=== PATIENT | male | born 1980 | race African-American/Black ===

== ENCOUNTER 2020-11-12 16:28 | Emergency (ER) | payer OTHER ==
--- NOTE | 2020-11-12 17:01 | EDM.PDOC ---
<Hedy Guadalupe - Last Filed: 11/12/20 16:53> ED HPI GENERAL MEDICAL PROBLEM - General Chief Complaint: Respiratory Problem Stated Complaint: TROUBLE WITH BREATHING AND SWALLOWING Time Seen by Provider: 11/12/20 16:43 Source of Information: Reports: Patient History Limitations: Reports: No Limitations - History of Present Illness INITIAL COMMENTS - FREE TEXT/NARRATIVE: Efraín is a pleasant 40 year old male presenting to the ED today with throat tightness. He is from [place], but is visiting his brother currently. He states it has gotten so bad that it is hard for him to breathe. He was diagnosed with bronchitis roughly one month ago in [place] and he was given prednisone and an albuterol inhaler. He states this did not help the throat tightness and it has progressively gotten worse. He admits to smoking marijuana, but has stopped smoking cigarettes as it made it worse. He denies any allergies. He states he occasionally gets cold sweats that come and go and along with that some chest tightness. He does have history of hypertension and GERD. He describes the pain as "bulging and squeezing" and spasming when I brought it up. He also mentions he is more dyspneic with exertion, with chest and back pain. He denies fevers, nausea, or vomiting. Throat Pain Score (Numeric/FACES): 9 - Related Data Allergies Allergy/AdvReac Type Severity Reaction Status Date / Time No Known Allergies Allergy Verified 11/12/20 16:37 Home Meds: Home Meds Albuterol Sulfate [Albuterol Sulfate Hfa] 2 puff IH Q4HR PRN 11/12/20 [History] Past Medical History Cardiovascular History: Reports: Hypertension Social & Family History - Tobacco Use Tobacco Use Status *Q: Former Tobacco User Used Tobacco, but Quit: Yes Month/Year Tobacco Last Used: 10/07 - Caffeine Use Caffeine Use: Reports: Coffee - Recreational Drug Use Recreational Drug Use: Yes Recreational Drug Type: Reports: Marijuana/Hashish ED ROS GENERAL - Review of Systems Review Of Systems: Comprehensive ROS is negative, except as noted in HPI. Respiratory: Reports: Shortness of Breath, Cough Cardiovascular: Reports: Chest Pain, Blood Pressure Problem Musculoskeletal: Reports: Back Pain ED EXAM, GENERAL - Physical Exam Exam: See Below Exam Limited By: No Limitations General Appearance: Alert, WD/WN, No Apparent Distress Throat/Mouth: Normal Inspection, Normal Lips, Normal Teeth, Normal Gums, Normal Oropharynx, Normal Voice, No Airway Compromise Head: Atraumatic, Normocephalic Neck: Normal Inspection, Supple, Non-Tender, Full Range of Motion Respiratory/Chest: No Respiratory Distress, Lungs Clear, Normal Breath Sounds, No Accessory Muscle Use, Chest Non-Tender Cardiovascular: Normal Peripheral Pulses, Regular Rate, Rhythm, No Edema, No Gallop, No JVD, No Murmur, No Rub GI/Abdominal: Normal Bowel Sounds, Soft, Non-Tender Back Exam: Normal Inspection, Full Range of Motion, NT Extremities: Normal Inspection, Normal Range of Motion, Non-Tender, Normal Capil edna Refill, No Pedal Edema Neurological: Alert, Oriented, CN II-XII Intact, Normal Cognition Course - Re-Assessments/Exams Free Text/Narrative Re-Assessment/Exam: 11/12/20 17:04 Efraín is a 40 year old male presenting to the ED with throat tightness that has gotten progressively worse over the past month. It is now hard for him to breathe and has complaints of dyspnea. Because of his history of hypertension, mild chest pain and getting cold sweats, a cardiac work, including troponin, PT/INR, PTT, BNP, magnesium, EKG, chest xray, up will be done to rule out any cardiac involvement. Routine labs will be ordered. Departure - Departure Disposition: Home, Self-Care Clinical Impression: Reflux esophagitis Qualifiers: Esophagitis bleeding: without hemorrhage Qualified Code(s): K21.00 - Gastro- esophageal reflux disease with esophagitis, without bleeding - Discharge Information Instructions: Food Choices for Gastroesophageal Reflux Disease, Adult, Gastroesophageal Reflux Disease, Adult, [id number] Referrals: PCP,None [Primary Care Provider] - Forms: ED Department Discharge Additional Instructions: You were evaluated in the ER today for your ongoing throat/possible esophageal spasms. A cardiac work-up was obtained at today's visit, just to make sure there was no cardiac etiology that would be causing your mid central chest/throat discomfort. Everything was within normal limits. It is highly likely that you are suffering from a component of acid reflux or GERD (gastroesophageal reflux disease), treatment of this will be with [id number] PPI like omeprazole (Prilosec) You will need to take 1 tablet once daily, to help suppress the acid production in your stomach. This medication may take up to 72 hours to provide you full benefit, I recommend you take a medication like Pepcid (famotidine) while the omeprazole is being given time to work. You may also use Maalox to help provide you relief while the Prilosec is being given time to work. Highly and strongly recommend you get a primary care provider, if you do not already have one, for a possible GI referral, and or general surgeon referral for an upper GI scope, or EGD, for further evaluation of your suspected reflux disease. Please return to the ER at any time if symptoms change or worsen. Sepsis Event Note (ED) - Evaluation Sepsis Screening Result: No Definite Risk <Yecenia Jacobson V - Last Filed: 11/12/20 18:25> #1 Interpretation EKG Date: 11/12/20 Time: 17:26 Rhythm: NSR Rate (Beats/Min): 77 [place]: Normal P-Wave: Present QRS: Normal ST-T: Normal QT: Normal Comparison: NA - No Prior EKG EKG Interpretation Comments: No obvious ischemia or acute ST changes noted, reviewed by myself and Dr. Foreman. Course - Vital Signs Last Recorded V/S: Last Vital Signs Temp 97.6 F 11/12/20 16:33 Pulse 95 11/12/20 16:33 Resp 16 11/12/20 16:33 BP 155/107 H 11/12/20 16:33 Pulse Ox 97 11/12/20 16:33 - Orders/Labs/Meds Orders: Active Orders 24 hr Category Date Time Status EKG Documentation Completion [RC] STAT Care 11/12/20 16:58 Ordered Chest 2V [CR] Stat Exams 11/12/20 16:58 Ordered Labs: Laboratory Tests 11/12/20 11/12/20 11/12/20 Range/Units 17:17 17:17 17:17 WBC 6.24 (4.23-9.07) K/mm3 RBC 4.90 (4.63-6.08) M/mm3 Hgb 14.3 (13.7-17.5) gm/dl Hct 43.4 (40.1-51.0) % MCV 88.6 (79.0-92.2) fl MCH 29.2 (25.7-32.2) pg MCHC 32.9 (32.2-35.5) g/dl RDW Std Deviation 49.0 H (35.1-43.9) fL Plt Count 224 (163-337) K/mm3 MPV 9.3 L (9.4-12.3) fl Neut % (Auto) 49.7 (34.0-67.9) % Lymph % (Auto) 37.5 (21.8-53.1) % Blanco % (Auto) 9.8 (5.3-12.2) % Eos % (Auto) 2.7 (0.8-7.0) Baso % (Auto) 0.3 (0.1-1.2) % Neut # (Auto) 3.10 (1.78-5.38) K/mm3 Lymph # (Auto) 2.34 (1.32-3.57) K/mm3 [place] # (Auto) 0.61 (0.30-0.82) K/mm3 Eos # (Auto) 0.17 (0.04-0.54) K/mm3 Baso # (Auto) 0.02 (0.01-0.08) K/mm3 PT 11.2 (9.7-12.0) SECONDS INR 1.05 APTT 27.6 (21.7-31.4) SECONDS Sodium 142 (136-145) mEq/L Potassium 3.7 (3.5-5.1) mEq/L Chloride 105 (98-107) mEq/L Carbon Dioxide 29 (21-32) mEq/L Anion Gap 11.7 (5-15) BUN 13 (7-18) mg/dL Creatinine 1.6 H (0.7-1.3) mg/dL Est Cr Clr Drug Dosing 63.37 mL/min Estimated GFR (MDRD) 58 (>60) mL/min BUN/Creatinine Ratio 8.1 L (14-18) Glucose 119 H (74-106) mg/dL Calcium 8.9 (8.5-10.1) mg/dL Magnesium 1.9 (1.8-2.4) mg/dl Total Bilirubin 0.4 (0.2-1.0) mg/dL AST 30 (15-37) U/L ALT 82 H (16-63) U/L Alkaline Phosphatase 67 (46-116) U/L Troponin I < 0.017 (0.00-0.056) ng/mL NT-Pro-B Natriuret Pep (0-125) pg/mL Total Protein 7.4 (6.4-8.2) g/dl Albumin 3.6 (3.4-5.0) g/dl Globulin 3.8 gm/dL Albumin/Globulin Ratio 1.0 (1-2) 11/12/20 Range/Units 17:17 WBC (4.23-9.07) K/mm3 RBC (4.63-6.08) M/mm3 Hgb (13.7-17.5) gm/dl Hct (40.1-51.0) % MCV (79.0-92.2) fl MCH (25.7-32.2) pg MCHC (32.2-35.5) g/dl RDW Std Deviation (35.1-43.9) fL Plt Count (163-337) K/mm3 MPV (9.4-12.3) fl Neut % (Auto) (34.0-67.9) % Lymph % (Auto) (21.8-53.1) % Blanco % (Auto) (5.3-12.2) % Eos % (Auto) (0.8-7.0) Baso % (Auto) (0.1-1.2) % Neut # (Auto) (1.78-5.38) K/mm3 Lymph # (Auto) (1.32-3.57) K/mm3 [place] # (Auto) (0.30-0.82) K/mm3 Eos # (Auto) (0.04-0.54) K/mm3 Baso # (Auto) (0.01-0.08) K/mm3 PT (9.7-12.0) SECONDS INR APTT (21.7-31.4) SECONDS Sodium (136-145) mEq/L Potassium (3.5-5.1) mEq/L Chloride (98-107) mEq/L Carbon Dioxide (21-32) mEq/L Anion Gap (5-15) BUN (7-18) mg/dL Creatinine (0.7-1.3) mg/dL Est Cr Clr Drug Dosing mL/min Estimated GFR (MDRD) (>60) mL/min BUN/Creatinine Ratio (14-18) Glucose (74-106) mg/dL Calcium (8.5-10.1) mg/dL Magnesium (1.8-2.4) mg/dl Total Bilirubin (0.2-1.0) mg/dL AST (15-37) U/L ALT (16-63) U/L Alkaline Phosphatase (46-116) U/L Troponin I (0.00-0.056) ng/mL NT-Pro-B Natriuret Pep 39 (0-125) pg/mL Total Protein (6.4-8.2) g/dl Albumin (3.4-5.0) g/dl Globulin gm/dL Albumin/Globulin Ratio (1-2) Meds: Medications Discontinued Medications Generic Name Dose Route Start Last Admin Trade Name Freq PRN Reason Stop Dose Admin Al Hydroxide/Mg Hydroxide 30 0 ml 11/12/20 17:08 11/12/20 17:21 ml/ Lidocaine HCl 15 ml PO 11/12/20 17:09 45 ml ONETIME ONE Administration - Re-Assessments/Exams Free Text/Narrative Re-Assessment/Exam: 11/12/20 17:14 I have read and reviewed the student's HPI and examined the patient and agree with PAO Avila-student. It does sound as if there is a component of reflux that is causing some of his issues. Have ordered a GI cocktail as well to see if this helps relieve some of his symptoms. Will likely have the patient start on Prilosec [id number], he notes that he was told to take Mylanta or Tums for treatment and the use have not been of much benefit. 11/12/20 18:07 Patient's EKG was done and demonstrates normal sinus rhythm with no other abnormalities. The patient's labs are unremarkable. Again I do believe that there could be a component of reflux or GERD in nature. I did tell the patient that he would likely benefit from getting a primary care provider, and getting an upper GI scope for further evaluation, patient verbalized understanding. Departure - Departure Time of Disposition: 18:08 Condition: Good - Discharge Information *PRESCRIPTION DRUG MONITORING PROGRAM REVIEWED*: No *COPY OF PRESCRIPTION DRUG MONITORING REPORT IN PATIENT JAIME: No Sepsis Event Note (ED) - Focused Exam Vital Signs: Vital Signs Temp Pulse Resp BP Pulse Ox 11/12/20 16:33 97.6 F 95 16 155/107 H 97 - My Orders Last 24 Hours: My Active Orders 11/12/20 16:58 EKG Documentation Completion [RC] STAT Chest 2V [CR] Stat - Assessment/Plan Last 24 Hours: My Active Orders 11/12/20 16:58 EKG Documentation Completion [RC] STAT Chest 2V [CR] Stat
[2020-11-12] MEDS ORDERED: Alum Hydrox/Mag Hydrox/Simeth 30 ML, Lidocaine 2% 15 ML PO ONE ×2 (17:08)
--- NOTE | 2020-11-12 18:44 | CR ---
Chest: 2 views of the chest were obtained. Comparison: No prior chest imaging is available. Heart size and mediastinum are normal. Lungs are clear with no acute parenchymal change. Bony structures are unremarkable. Impression: 1. Nothing acute is seen on 2 view chest x-ray. Diagnostic code #1
== END 2020-11-12 18:44 | disposition home or self-care (01) ==
LOC: JD.ED 16:28
DX: K21.00 Gastro-esophageal reflux disease with esophagitis, without bleeding (principal); R06.02 Shortness of breath; M54.9 Dorsalgia, unspecified; I10 Essential (primary) hypertension; Z87.891 Personal history of nicotine dependence
CPT/HCPCS: 36415; 71046; 80053; 83735; 83880; 84484; 85025; 85610; 85730; 93005; 99285; A9270; 93010; 99283

== ENCOUNTER 2021-05-15 05:19 | Emergency (ER) | payer MEDICAID, OTHER ==
[2021-05-15] MEDS ORDERED: Alum Hydrox/Mag Hydrox/Simeth 30 ML, Lidocaine 2% 15 ML PO STA ×2 (06:35)
--- NOTE | 2021-05-15 06:41 | EDM.PDOC ---
<Bryon Braga - Last Filed: 05/15/21 07:14> ED HPI GENERAL MEDICAL PROBLEM - General Chief Complaint: Cardiovascular Problem Stated Complaint: CHEST PAIN/UPPER ABDOMINAL PAIN Time Seen by Provider: 05/15/21 06:21 Source of Information: Reports: Patient History Limitations: Reports: No Limitations - History of Present Illness INITIAL COMMENTS - FREE TEXT/NARRATIVE: Mr. Ham is a very pleasant 41-year-old gentleman who now presents the ED stating that he initially developed episodic pain in his lower extremities in January, which has since migrated up to his epigastrium. His epigastric pain is made worse after he eats, but he has not identified any other modifiers, such as movement. He has had occasional nausea, slight dyspnea, chills, a slight cough, and reports that both of his lower extremities twitch on occasion. He experienced momentary sharp central chest pain around 05:45 this morning, which is what prompted him to come to the ED today. He has not taken any [id number] or home remedies. Here in the ED, the patient's initial BP is found to be modestly elevated 158/85, otherwise, he is hemodynamically stable, afebrile, saturating 98% on room air. He appears to be comfortable, in no acute distress. Prior to January, the patient denies having a recent fever, chills, sore throat, ear pain, nasal or sinus congestion, cough, dyspnea, chest pain, palpitations, nausea, vomiting, constipation, diarrhea, abdominal pain, urinary symptoms, recent weight gain or weight loss, recent bloody bowel movements or black bowel movements, recent joint aches, headaches, or rashes. The patient lives in [place] and is visiting this area for 1 to 2 weeks. He has not received a COVID vaccination. Upper Abdomen Pain Score (Numeric/FACES): 8 - Related Data Allergies Allergy/AdvReac Type Severity Reaction Status Date / Time No Known Allergies Allergy Verified 05/15/21 05:27 Home Meds: Home Meds Omeprazole Magnesium [Prilosec Otc] 20 mg PO DAILY #42 tablet. 05/15/21 [Rx] hydroCHLOROthiazide [Hydrochlorothiazide] 12.5 mg PO 05/15/21 [History] Past Medical History Cardiovascular History: Reports: Hypertension Social & Family History - Tobacco Use Tobacco Use Status *Q: Former Tobacco User Years of Tobacco use: 27 Packs/Tins Daily: 1 Month/Year Tobacco Last Used: Quit Oct 2020 Tobacco Use Comment: Started smoking 1992 - Caffeine Use Caffeine Use: Reports: Coffee - Alcohol Use Alcohol Use History: Yes Alcohol Use Frequency: Socially - Recreational Drug Use Recreational Drug Use: Yes Drug Use in Last 12 Months: Yes Recreational Drug Type: Reports: Marijuana/Hashish (smokes daily) - Living Situation & Occupation Living situation: Reports: , with Spouse, with Family (5 kids) Occupation: Employed (Home improvement) ED ROS GENERAL - Review of Systems Review Of Systems: Comprehensive ROS is negative, except as noted in HPI. ED EXAM, GENERAL - Physical Exam Exam: See Below Exam Limited By: No Limitations General Appearance: Alert, WD/WN, No Apparent Distress Eye Exam: Bilateral Eye: EOMI, Normal Inspection Ears: Normal External Exam, Hearing Grossly Normal Nose: Normal Inspection Throat/Mouth: Normal Inspection, Normal Lips, Normal Voice, No Airway Compromise Head: Atraumatic, Normocephalic Neck: Normal Inspection, Full Range of Motion Respiratory/Chest: No Respiratory Distress, Lungs Clear, Normal Breath Sounds, No Accessory Muscle Use, Chest Non-Tender Cardiovascular: Normal Peripheral Pulses, Regular Rate, Rhythm, No Edema, No Gallop, No JVD, No Murmur, No Rub Peripheral Pulses: 3+: Radial (L), Radial (R) GI/Abdominal: Normal Bowel Sounds, Soft, Non-Tender (including the epigastrium), No Organomegaly, No Distention, No Abnormal Bruit, No Mass Back Exam: Normal Inspection, Full Range of Motion. No: CVA Tenderness (L), CVA Tenderness (R) Extremities: Normal Inspection, Normal Range of Motion, No Pedal Edema, Normal Capillary Refill Neurological: Alert, Oriented, Normal Cognition, No Motor/Sensory Deficits Psychiatric: Normal Affect Skin Exam: Warm, Dry, Intact, Normal Color, No Rash #1 Interpretation EKG Date: 05/15/21 Time: 05:27 Rhythm: NSR Rate (Beats/Min): 72 [place]: Normal P-Wave: Present QRS: Normal ST-T: Normal QT: Normal Comparison: No Change (11/12/2020) Course - Re-Assessments/Exams Free Text/Narrative Re-Assessment/Exam: 05/15/21 06:36 As above, the patient initially developed episodic pain in his lower extremities in January, which has since migrated up to his epigastrium. His epigastric pain is made worse after he eats, but not with any movements. He has had occasional nausea, slight dyspnea, chills, a slight cough, and he reports that both of his lower extremities twitch on occasion. He experienced momentary sharp central chest pain around 05:45 this morning, which is what prompted him to come to the ED today. An ECG, obtained at triage, shows no ischemic changes. His physical exam is unremarkable, including no tenderness to his epigastrium. I suspect that the patient's episodic epigastric pain and this morning's chest pain is due to GERD. I have ordered a GI cocktail to see if that modifies his symptoms, however, he is not having much pain at this time. I cannot correlate the remainder of his symptoms, including the migration of his pain up his legs into his abdomen. I have ordered a work-up that includes numerous blood tests, a swab for the SARS-CoV-2 virus, a chest x-ray, and a CT of the abdomen and pelvis with oral and IV contrast. In the meantime, the patient will be given some IV fluid. 05/15/21 07:[address] Paniagua, and care of the patient turned over to him at this time for change of shift. Departure - Departure Disposition: Home, Self-Care 01 Clinical Impression: Gastroesophageal reflux disease Qualifiers: Esophagitis presence: with esophagitis Esophagitis bleeding: without hemorrhage Qualified Code(s): K21.00 - Gastro-esophageal reflux disease with esophagitis, without bleeding - Discharge Information Prescriptions: Omeprazole Magnesium [Prilosec Otc] 20 mg PO DAILY #42 tablet. Referrals: PCP,Not In Area [Primary Care Provider] - Forms: ED Department Discharge Additional Instructions: Evaluation in the emergency room this morning primarily due to severe epigastric abdominal pain and lower retrosternal chest discomfort felt to be due to gastroesophageal reflux disease. Lab tests improved including a repeat COVID-19 screen came back negative. No abnormalities in the electrolytes to account for weakness in your feet or sense of being out of equilibrium. Neuro exam is otherwise normal. All lab test done through the emergency room were normal as mentioned above. CT of the abdomen also proved to show no abnormalities of the liver, pancreas, spleen, stomach, adrenal glands, both kidneys and ureters and normal bladder and pelvis. I would suggest using Prilosec 20 mg which you can berry picker [id number] twice daily morning and bedtime for 1 week to heal suspect lower esophageal inflammation from reflux likely during the night. Then reduce it to 1 tablet at bedtime after the first week once the first 42 tablets are done I would adopt a [id number] approach as to whether you have continued problems with reflux disease. If symptoms of lower extremity weakness and sense of disequilibrium continue please follow-up with your physician when you get back home. Sepsis Event Note (ED) - Evaluation Sepsis Screening Result: No Definite Risk <Ivan Paniagua - Last Filed: 05/15/21 10:56> Course - Vital Signs Last Recorded V/S: Last Vital Signs Temp 36.8 C 05/15/21 05:27 Pulse 76 05/15/21 05:27 Resp 18 05/15/21 05:27 BP 158/85 H 05/15/21 05:27 Pulse Ox 98 05/15/21 05:27 - Orders/Labs/Meds Orders: Active Orders 24 hr Category Date Time Status EKG Documentation Completion [RC] ASDIRECTED Care 05/15/21 05:35 Active Sodium Chloride 0.9% [Normal Saline] 1,000 ml Med 05/15/21 06:45 Active IV ASDIRECTED Sodium Chloride 0.9% [Saline Flush] Med 05/15/21 07:36 Active 10 ml FLUSH ONETIME PRN EKG 12 Lead [EK] Stat Ther 05/15/21 05:34 Ordered Medication Orders Sodium Chloride (Normal Saline) 1,000 mls @ 150 mls/hr IV ASDIRECTED BLESSING Last Admin: 05/15/21 06:49 Dose: 150 mls/hr Documented by: JUAN Sodium Chloride (Sodium Chloride 0.9% 10 Ml Syringe) 10 ml FLUSH ONETIME PRN PRN Reason: IV FLUSH Last Admin: 05/15/21 09:33 Dose: 10 ml Documented by: DAHIANA Labs: Laboratory Tests 05/15/21 05/15/21 05/15/21 Range/Units 06:50 06:50 07:00 WBC 7.50 (4.23-9.07) K/mm3 RBC 5.09 (4.63-6.08) M/mm3 Hgb 15.2 (13.7-17.5) gm/dl Hct 45.6 (40.1-51.0) % MCV 89.6 (79.0-92.2) fl MCH 29.9 (25.7-32.2) pg MCHC 33.3 (32.2-35.5) g/dl RDW Std Deviation 51.5 H (35.1-43.9) fL Plt Count 237 (163-337) K/mm3 MPV 9.6 (9.4-12.3) fl Neutrophils % (Manual) 55 (40-60) % Band Neutrophils % 0 (0-10) % Lymphocytes % (Manual) 39 (20-40) % Atypical Lymphs % 0 % Monocytes % (Manual) 4 (2-10) % Eosinophils % (Manual) 2 (0.8-7.0) % Basophils % (Manual) 0 L (0.2-1.2) Platelet Estimate Adequate RBC Morph Comment Normal Sodium 142 (136-145) mEq/L Potassium 3.8 (3.5-5.1) mEq/L Chloride 106 (98-107) mEq/L Carbon Dioxide 29 (21-32) mEq/L Anion Gap 10.8 (5-15) BUN 20 H (7-18) mg/dL Creatinine 1.7 H (0.7-1.3) mg/dL Est Cr Clr Drug Dosing 59.04 mL/min Estimated GFR (MDRD) 54 (>60) mL/min BUN/Creatinine Ratio 11.8 L (14-18) Glucose 93 (70-99) mg/dL Calcium 9.3 (8.5-10.1) mg/dL Magnesium 2.2 (1.8-2.4) mg/dL Total Bilirubin 0.3 (0.2-1.0) mg/dL AST 26 (15-37) U/L ALT 31 (16-63) U/L Alkaline Phosphatase 63 (46-116) U/L Troponin I < 0.017 (0.00-0.056) ng/mL C-Reactive Protein <0.2 (<1.0) mg/dL Total Protein 7.7 (6.4-8.2) g/dl Albumin 3.9 (3.4-5.0) g/dl Globulin 3.8 gm/dL Albumin/Globulin Ratio 1.0 (1-2) Lipase 135 (73-393) U/L SARS-CoV-2 RNA (JANIS) Negative (NEGATIVE) Meds: Medications Generic Name Dose Route Start Last Admin Trade Name Anthony PRN Reason Stop Dose Admin Sodium Chloride 1,000 mls @ 150 mls/hr 05/15/21 06:45 05/15/21 06:49 Normal Saline IV 150 mls/hr ASDIRECTED BLESSING Administration Sodium Chloride 10 ml 05/15/21 07:36 05/15/21 09:33 Sodium Chloride 0.9% 10 Ml Syringe FLUSH 10 ml ONETIME PRN Administration IV FLUSH Discontinued Medications Generic Name Dose Route Start Last Admin Trade Name Anthony PRN Reason Stop Dose Admin Al Hydroxide/Mg Hydroxide 30 0 ml 05/15/21 06:35 05/15/21 06:49 ml/ Lidocaine HCl 15 ml PO 05/15/21 06:36 45 ml ONETIME STA Administration Diatrizoate Meglum/Diatrizoate Sod 120 ml 05/15/21 07:36 05/15/21 09:32 Diatrizoate Meglumine/Diatrizoate Sodium 37% 120 Ml Bottle PO 05/15/21 07:37 120 ml ONETIME ONE Administration Dicyclomine HCl 20 mg 05/15/21 08:48 05/15/21 09:00 Dicyclomine 10 Mg Cap PO 05/15/21 08:49 20 mg ONETIME ONE Administration Iopamidol 100 ml 05/15/21 07:36 05/15/21 09:32 Iopamidol 612 Mg/Ml 100 Ml Bottle IVPUSH 05/15/21 07:37 100 ml ONETIME ONE Administration - Re-Assessments/Exams Free Text/Narrative Re-Assessment/Exam: 05/15/21 08:49 Care was assumed from Dr. Braga at change of shift. Patient presents primarily with upper GI discomfort and pressure in the pit of his stomach but with hiatal hernia. He did get some relief from GI cocktail but still has a pressure rate rated as 5 out of 10. Review of portable chest x-ray reveals mildly hyperinflated lung marisacl with clear lung parenchyma. Cardiac silhouette and mediastinum are normal. No pneumothorax. Will therefore go ahead with proposed CT of the abdomen and pelvis with oral contrast. Given Bentyl 20 mg p.o. for further relief of suspect hiatal hernia discomfort. 05/15/21 08:51 Labs reveal a normal white count at 7.50 differential pending hemoglobin 15.2 with hematocrit of 45.6 platelet count 237,000. Sodium 142 with potassium 3.8 chloride 106 with a bicarb of 29. Anion gap is 10.8. BUN is 20 with a creatinine of 1.7. GFR is 54. Glucose 93 with a calcium of 9.3. Magnesium 2.2 liver function normal troponin was less than 0.017 C-reactive protein less than 0.2 total protein 7.7 lipase 135 COVID-19 screen negative. 05/15/21 09:15: Did speak to the patient indicated that his lab tests including COVID-19 screen were negative. No evidence of blood clots in his lungs or heart related illness. Dr. Braga had ordered a CT of his abdomen and pelvis with oral contrast and he is currently drinking the oral contrast. Sounds like he is been having a lot of neuropathic and muscle twitching pain as well as epigastric discomfort off and on since COVID-19 illness in January of this year. 05/15/21 10:41 CT of the abdomen has been completed. Liver contains no focal parenchymal abnormalities. Gallbladder contains no calcified gallstones. Spleen size is normal. Adrenal glands show no nodules. Pancreas shows no abnormality. Kidneys show contrast enhancement without hydronephrosis or mass. Abdominal aorta shows no aneurysm. Appendix is seen which is normal. No pelvic mass or adenopathy is seen. Delayed images show contrast within the distal ureters and within the urinary bladder. Bone window settings were reviewed which showed no acute abnormality for the patient's age. Nothing acute is appreciated on CT of the abdomen and pelvis. 05/15/21 10:52 discussed the findings with the patient. Unclear etiology for his feeling of being off balance and his legs not working quite right. He is planning to head back to [place] and will see his physician there. Advised that he should be on Prilosec 20 mg daily for suspect gastroesophageal reflux disease. Departure - Departure Time of Disposition: 10:53 Condition: Fair - Discharge Information *PRESCRIPTION DRUG MONITORING PROGRAM REVIEWED*: Not Applicable *COPY OF PRESCRIPTION DRUG MONITORING REPORT IN PATIENT JAIME: Not Applicable Sepsis Event Note (ED) - Focused Exam Vital Signs: Vital Signs Temp Pulse Resp BP Pulse Ox 05/15/21 05:27 36.8 C 76 18 158/85 H 98
[2021-05-15] MEDS ORDERED: Sodium Chloride 0.9% 1,000 ML IV SCH (06:45)
[2021-05-15] MEDS ORDERED: Diatrizoate Meglumine/Diatrizoate Sodium 37% 120 ML Bottle PO ONE (07:36)
[2021-05-15] MEDS ORDERED: Sodium Chloride 0.9% 10 ML Syringe FLUSH PRN (07:36)
[2021-05-15] MEDS ORDERED: Iopamidol 612 MG/ML 100 ML Bottle IVPUSH ONE (07:36)
[2021-05-15] MEDS ORDERED: Dicyclomine 10 MG Cap PO ONE (08:48)
--- NOTE | 2021-05-15 08:56 | CR ---
Chest: PA and lateral views of the chest were obtained. Comparison: Prior chest x-ray of 11/12/20. Heart size and mediastinum are normal. Lungs are clear with no acute parenchymal change. Bony structures are within normal limits. Impression: 1. Nothing acute is seen on 2 view chest x-ray. 2. No change is seen from prior chest x-ray. Diagnostic code #1
--- NOTE | 2021-05-15 10:06 | CT ---
CT abdomen and pelvis Technique: Multiple axial sections were obtained from above the dome of the diaphragm inferiorly through the pubic symphysis. Intravenous and oral contrast has been given. Delayed images were also obtained through the pelvis. Comparison: No prior abdominal imaging is available. Findings: Visualized lung bases show nothing acute. Liver contains no focal parenchymal abnormality. Gallbladder contains no calcified gallstones. Spleen size is normal. Adrenal glands show no nodule. Pancreas shows no abnormality. Kidneys show contrast enhancement without hydronephrosis or mass. Abdominal aorta shows no aneurysm. Appendix is seen which is normal. No pelvic mass or adenopathy is seen. Delayed images show contrast within the distal ureters and within the bladder. Bone window settings were reviewed which show no acute abnormality for the patient's age. Impression: 1. Nothing acute is appreciated on CT study of the abdomen and pelvis. Diagnostic code #1
== END 2021-05-15 11:09 | disposition home or self-care (01) ==
LOC: JD.ED 05:19
DX: K21.00 Gastro-esophageal reflux disease with esophagitis, without bleeding (principal); I10 Essential (primary) hypertension; Z87.891 Personal history of nicotine dependence; Z79.899 Other long term (current) drug therapy; Z20.822 Contact with and (suspected) exposure to COVID-19
CPT/HCPCS: 36415; 71046; 74177; 80053; 83690; 83735; 84484; 85007; 85027; 86140; 87635; 93005; 99284; A9270; J7030; Q9963; Q9967; 93010; U0002

== ENCOUNTER 2022-06-22 21:56 | Emergency (ER) | payer OTHER | END 2022-06-22 23:30 | disposition home or self-care (01) | LOC: JD.ED 21:56 | DX: R06.02 Shortness of breath (principal); K04.7 Periapical abscess without sinus; K21.9 Gastro-esophageal reflux disease without esophagitis; M62.830 Muscle spasm of back; I10 Essential (primary) hypertension; Z79.899 Other long term (current) drug therapy; Z86.16 Personal history of COVID-19; Z20.822 Contact with and (suspected) exposure to COVID-19 | CPT/HCPCS: 71046; 71046-26; 99285; U0002 ==

== ENCOUNTER 2022-08-29 15:34 | Emergency (ER) | payer OTHER ==
[2022-08-29] MEDS ORDERED: Acetaminophen/HYDROcodone 325-5 MG Tab PO ONE (17:17)
== END 2022-08-29 19:42 | disposition home or self-care (01) ==
LOC: JD.ED 15:34
DX: S82.434A Nondisplaced oblique fracture of shaft of right fibula, initial encounter for closed fracture (principal); I10 Essential (primary) hypertension; Z79.899 Other long term (current) drug therapy; W18.40XA Slipping, tripping and stumbling without falling, unspecified, initial encounter
CPT/HCPCS: 73562; 73610; 99283; A9270